=== PATIENT | male | born 1995 | race Caucasian/White ===

== ENCOUNTER 2017-02-10 09:37 | Emergency (ER) | payer OTHER ==
[2017-02-10 10:30] LABS: HEMOGLOBIN 15.3 gm/dl (14.0-17.5); RED BLOOD COUNT 5.04 M/UL (4.20-5.50); WHITE BLOOD COUNT 6.5 K/UL (4.5-11.0)
[2017-02-10 10:52] LABS: BUN/CREATININE RATIO 14 (0-10)
== END 2017-02-10 14:11 | disposition home or self-care (01) ==
LOC: ER1 09:37
PROVIDERS: Emergency Medicine
DX: N50.811 Right testicular pain (principal); N50.9 Disorder of male genital organs, unspecified
CPT/HCPCS: 36415; 76870; 80053; 81001; 83690; 85025; 96372; 99284; J0696